=== PATIENT | female | born 1945 | race Caucasian/White ===

== ENCOUNTER 2018-04-25 14:26 | Inpatient (IN) | payer MEDICARE, OTHER ==
[2018-04-25] MEDS ORDERED: NS 0.9% 1000 ML* 1,000 ML IV ONE (14:45)
[2018-04-25 15:10] LABS: ABS Basophils 0.1 10^3/ul (0-0.2); ABS Eosinophils 0.2 10^3/ul (0-0.6); ABS Lymphocytes 2.3 10^3/ul (1.0-4.8); ABS Monocytes 0.5 10^3/ul (0-0.8); ABS Neutrophils 3.4 10^3/ul (1.5-7.7); ABS Nucleated RBC 0 10^3/ul; Eosinophil % 3.7 % (0-6); Hematocrit 40 % (35-47); Hemoglobin 13.4 g/dl (12.0-16.0); Lymphocyte % 35.4 % (25-47); Mean Corpuscular HGB Conc 34 g/dl (31-36); Mean Corpuscular Hemoglobin 31 pg (27-31); Mean Corpuscular Volume 91 fL (80-97); Mean Platelet Volume 8.3 um3 (7.4-10.4); Nucleated Red Blood Cells % 0.1; Platelet Count 238 10^3/ul (150-450); Red Blood Count 4.35 10^6/ul (4.00-5.40); Red Cell Distribution Width 13 % (10.5-15); White Blood Count 6.5 10^3/ul (3.5-10.8)
--- NOTE | 2018-04-25 15:11 | ED ---
Neurological HPI - HPI Summary HPI Summary: This patient is a 72 year old F presenting to [facility] accompanied by friend with a chief complaint of FND since 1400. Pt endorses that her left arm wouldnt lift , aphasia, drooling, all left sided deficiencies; the episode lasted a very short amount of time: 1 minute. Pt tried to call friend but could not speak. Pts bad river [place] language is Japanese, speaks Scottish tolerably well but with some limitations. Denies PMHx tremor but endorses a bilateral UE tremor today. Denies fall/ head injury. Denies vision change. Pt takes 2 ibuprofens in evenings. - History of Current Complaint Chief Complaint: EDNeurologicalDeficit Stated Complaint: POSS STROKE Time Seen by Provider: 04/25/18 14:45 Hx Obtained From: Patient, Other: - friend Onset/Duration: Sudden Onset, Resolved Timing: Sudden Onset Onset Severity: Severe Current Severity: None Neurological Deficit Location: Generalized - left sided Character: Motor Weakness, Impaired Speech Episode Lasting: Seconds/Minutes Syncope Context: Witnessed, Loss of Consciousness: No, At Rest Syncope Location: Partial Extremities, Facial Movements Aggravating: Nothing Alleviating: Spontanious Resolution Associated Signs and Symptoms: Positive: Unsteady Gait, Weakness, Impaired Speech. Negative: Visual Changes TPA Considered: No - sx resolved - Allergy/Home Medications Allergies/Adverse Reactions: Allergies Allergy/AdvReac Type Severity Reaction Status Date / Time levofloxacin [From Levaquin] Allergy Mild stomach Verified 04/25/18 16:08 issues [employer] Allergy Unknown Uncoded 09/12/15 09:15 Reaction Details PMH/Surg Hx/FS Hx/Imm Hx Endocrine/Hematology History: Denies: Hx Anticoagulant Therapy, Hx Diabetes, Hx Thyroid Disease Cardiovascular History: Reports: Other Cardiovascular Problems/Disorders - HEART MURMUR Denies: Hx Hypertension, Hx Pacemaker/ICD, Hx Valvular Heart Disease Respiratory History: Denies: Hx Asthma, Hx Chronic Obstructive Pulmonary Disease (COPD) GI History: Reports: Hx Irritable Bowel - IN THE PAST History: Reports: Hx Kidney Stones - LAST PROCEDURE 3-4 YEARS AGO, Other Problems/Disorders - WAS TOLD TO TAKE HCTZ FROM THE UROLOGIST Denies: Hx Renal Disease Musculoskeletal History: Reports: Hx Arthritis - FINGERS Sensory History: Reports: Hx Cataracts, Hx Contacts or Glasses - GLASSES Denies: Hx Hearing Aid Opthamlomology History: Reports: Hx Cataracts, Hx Contacts or Glasses - GLASSES Neurological History: Reports: Hx Headaches - RARE Denies: Hx Dementia, Hx Seizures Psychiatric History: Denies: Hx Substance Abuse - Surgical History Surgery Procedure, Year, and Place: KIDNEY STONES BLASTED X 2. CYST REMOVED. HYSTERECTOMY-AND APPENDECTOMY Hx Anesthesia Reactions: No - Immunization History Date of Tetanus Vaccine: UNK Infectious Disease History: Denies: Hx Hepatitis, Hx Human Immunodeficiency Virus (HIV) - Family History Known Family History: Negative: Blood Disorder - Social History Occupation: Retired Alcohol Use: Daily Alcohol Amount: 1 GLASS OF WINE DAILY Substance Use Type: Reports: None Smoking Status (MU): Former Smoker Amount Used/How Often: 1 PPD X 20+ YEARS Have You Smoked in the Last Year: No Review of Systems Negative: Fever Neurological: Other - drooling, hemiparesis, aphasia Positive: Weakness, Slurred Speech All Other Systems Reviewed And Are Negative: Yes Physical Exam - Summary Physical Exam Summary: Appearance: Well appearing, no pain distress, tremor in bilateral hands Skin: warm, dry, reflects adequate perfusion Head/face: normal Eyes: EOMI, DANIEL ENT: normal Neck: supple, non-tender Respiratory: CTA, breath sounds present Cardiovascular: RRR, pulses symmetrical Abdomen: non-tender, soft Bowel Sounds: present Musculoskeletal: tremor in bilateral hands, strength/ROM intact Neuro: normal, sensory motor intact, A&Ox3, NIH score 0 Triage Information Reviewed: Yes Vital Signs Reviewed: Yes Diagnostics - Laboratory Result Diagrams: 04/25/18 14:50 04/25/18 14:50 Lab Statement: Any lab studies that have been ordered have been reviewed, and results considered in the medical decision making process. - Radiology CXR Xray Interpretation: No Acute Changes Radiology Interpretation Completed By: Radiologist - no radiographic evidence for acute cardiopulmonary abnormality on this portable XR. Dr. Almeida has reviewed this report. - CT Brain CT Interpretation: No Acute Changes CT Interpretation Completed By: Radiologist - Normal CT of the brain. No evidence of acute intracranial hemorrhage. Dr. Almeida has reviewed this report - EKG 1502 Cardiac Rate: NL - 63 EKG Rhythm: Sinus Rhythm ST Segment: Normal EKG Interpretation: nl axis NIH Scale - NIH Scale Level of Consciousness: Alert/Keenly Responsive Ask Patient the Month and His/Her Age: Both Correct Ask Pt to Open/Close Eyes and Merchandise Deliverer/Release Non-Paretic Hand: Both Correctly Best Gaze (Only Horizontal Eye Movement): Normal Visual Field Testing: No Visual Loss Facial Paresis-Pt to Smile & Close Eyes or Grimace Symmetry: Normal/Symmetrical Motor Function - Right Arm: No Drift-Holds 10 Seconds Motor Function - Left Arm: No Drift-Holds 10 Seconds Motor Function - Right Leg: No Drift-Holds 10 Seconds Motor Function - Left Leg: No Drift-Holds 10 Seconds Limb Ataxia-Must be out of Proportion to Weakness Present: Absent Sensory (Use Pinprick to Test Arms/Legs/Trunk/Face): Normal Best Language (Describe Picture, Name Items): No Aphasia Dysarthria (Read Several Words): Normal Extinction and Inattention: No Abnormality Total Score: 0 Re-Evaluation - Re-Evaluation First Eval Change: Unchanged - Patient remains an NIH stroke score of 0 Course/Dx - Course Course Of Treatment: Patient with abrupt onset of left-sided upper and lower extremity weakness/ataxia as well as difficulty with speech. Her symptoms have spontaneously resolved. At CT has been negative. She shows no atrial fibrillation. She has no significant independent risk factors including hypertension. Today her blood pressure is elevated likely as a result of the neurologic syndrome. Hospitalist contacted for admission after patient started on aspirin. Neurology was contacted and will consult. - Differential Dx Differential Diagnoses Neuro: Positive: Other - CVA/TIA, intracranial hemorrhage , metabolic abnormality, heat related illness, anxiety - Diagnoses Provider Diagnoses: TIA (transient ischemic attack), Uncontrolled hypertension - Physician Notifications Discussed Care Of Patient With: Zara Tolliver - admit to Dr. Millicent Pedraza hospitalist Time Discussed With Above Provider: 15:33 Instructed by Provider To: Other Discharge - Sign-Out/Discharge Documenting (check all that apply): Patient Departure - admit - Discharge Plan Condition: Fair Disposition: ADMITTED TO [facility] - Billing Disposition and Condition Condition: FAIR Disposition: Admitted to [facility] Consult Consult: [id number] Dr. Pedraza accepts admission to [facility].
[2018-04-25 15:21] LABS: INR 0.85 (0.77-1.02)
--- NOTE | 2018-04-25 15:24 | RAD ---
INDICATION: Weakness and patient unable to speak COMPARISON: None. TECHNIQUE: Contiguous axial sections of the brain were obtained from the skull base to the vertex without contrast. FINDINGS: The ventricles, cisterns and sulci are within normal limits. The wells-white matter differentiation is adequately maintained and there is no sulcal effacement. No significant focal abnormality or mass effect is present. There is no evidence for intracranial hemorrhage. No significant focal osseous abnormality is present. The visualized portion of the paranasal sinuses appear clear. The mastoid air cells are well aerated bilaterally. IMPRESSION: Normal CT of the brain. No evidence of acute intracranial hemorrhage. Findings were communicated to Dr. Almeida over the telephone at 1519 hours.
--- NOTE | 2018-04-25 15:25 | RAD ---
INDICATION: Acute neurologic changes COMPARISON: Most recent comparison dated July 14, 2012 TECHNIQUE: Single AP portable view of the chest was obtained. FINDINGS: Image quality is compromised due to the relative inferiority of a portable chest x-ray. The heart and mediastinum exhibit normal size and contour. There is coarse calcification overlying the arch of the aorta. The lungs are grossly clear. There is no evidence of a large pleural effusion. Visualized bones are normal for the patient's age. IMPRESSION: No radiographic evidence for acute cardiopulmonary abnormality on this portable chest x-ray.
[2018-04-25 15:28] LABS: EGFR Non-African American 77.1 (>60)
[2018-04-25] MEDS ORDERED: Aspirin 81 mg CHEW TAB* 81 MG TAB.CHEW PO ONE (15:32)
[2018-04-25] MEDS ORDERED: Potassium Chlor TAB* 20 MEQ TAB.ER PO ONE (16:09)
[2018-04-25 16:16] LABS: Urine Appearance Clear; Urine Blood Negative (Negative); Urine Color Straw; Urine Ketones Negative (Negative); Urine Protein Negative (Negative); Urine Specific Gravity 1.003 (1.010-1.030); Urine Urobilinogen Negative (Negative)
[2018-04-25] MEDS ORDERED: Atorvastatin* 40 MG TAB PO SCH (17:00)
[2018-04-25] MEDS: Acetaminophen TAB* 325 MG PO PRN ×2 (17:45→23:20)
--- NOTE | 2018-04-25 18:23 | HP ---
CC: Dr. Long * [facility] MEDICINE HISTORY AND PHYSICAL: DATE OF ADMISSION: 04/25/18 PRIMARY CARE PHYSICIAN: Dr. Long. ATTENDING PHYSICIAN: Dr. Nolberto Ross * (dictation provided by Radha Hanson NP ). CHIEF COMPLAINT: Left arm weakness and aphasia x1 to 2 minutes. HISTORY OF PRESENT ILLNESS: Ms. Haley is a 72-year-old female with no significant past medical history, who presented to the hospital today after having a 1- to 2- minute episode where she had numbness followed by weakness at her left arm then with aphasia and drooling. Ms. Haley states that she has been in her normal state of health recently. She has had no complaints. She played Ping Pong with her friend and then went in to take care of her dog. While inside, she felt numbness in her left hand and then this progressed to left arm weakness and paralysis. She went outside and saw her friend and wanted to ask for help, but was unable to speak. She was noted to be drooling. Neither she nor her friend noticed that there was a facial droop and it seemed that she was drooling from the center of her mouth. The patient states that these symptoms lasted about 1 to 2 minutes. She initially tells me she has no symptoms now, but then she states that she felt some tingling in both of her hands. She has no known past medical history. She denies any history of hypertension. No known history of high cholesterol. She does not have a history of diabetes per knowledge. In the emergency room, Ms. Haley had a CT brain, which showed no acute abnormalities. She had chest x-ray, which also showed no acute abnormalities. She had an EKG, which showed a sinus rhythm and no evidence of ischemia. She had labs, which were essentially unremarkable, but did show low potassium of 3.3 and a glucose of 128. Her lipids were drawn this afternoon and showed triglycerides 473, cholesterol 291. LDL is unable to be calculated due to the high triglycerides, but again I do not believe this is a fasting sample. PAST SURGICAL HISTORY: 1. History of hysterectomy. 2. Appendectomy. 3. Multiple back surgeries for "disk" problems. 4. History of a right knee surgery. 5. History of lithotripsy for kidney stones. 6. History of right knee pain with steroid injections per Dr. Homero. 7. History of cataract surgery. MEDICATIONS: 1. Ascorbic acid 500 mg p.o. q.a.m. 2. Calcium carbonate 600 mg p.o. b.i.d. 3. Centrum Silver 1 tab p.o. daily. 4. Cetirizine 10 mg p.o. daily. 5. Glucosamine 500 mg p.o. q.a.m. 6. Ibuprofen 200 mg p.o. b.i.d. 7. Lactobacillus 1 cap p.o. daily. 8. Fish oil 1000 mg p.o. daily. ALLERGIES: To LEVOFLOXACIN. FAMILY HISTORY: The patient reports that her mother related to surgery complications after colostomy reversal and dad related to heart attack. SOCIAL HISTORY: The patient was smoking in . She drinks 1 glass of wine per night. No reported drug use. She states that her friend, Iris, would be the healthcare proxy. PHYSICAL EXAMINATION GENERAL: Ms. Haley is lying in the bed with her friend, Iris, at the bedside. LUNGS: Clear to auscultation bilaterally with no accessory muscle use and good aeration. HEART: S1 and S2. No murmur, rub or gallop and regular. ABDOMEN: Soft, nontender with bowel sounds positive x4. EXTREMITIES: No cyanosis and no edema. NEURO: She is alert. She is oriented x3. She moves all extremities equally. There is no facial asymmetry or focal weakness. Extraocular movements are intact. There is no facial asymmetry. Tongue is midline. Cranial nerves are intact II through X. She has no ataxia with [id number] or euilbr-[id number]-yijx. SKIN: Intact. DIAGNOSTIC STUDIES/LAB DATA: Sodium 136, potassium 3.3, chloride 98, serum bicarbonate 28, BUN 10, creatinine 0.75, glucose 128, lactic acid 1.9. Troponin 0.00. WBC 6.5, hemoglobin 13.4, hematocrit 40, and platelet count 238. INR 0.85. CT brain shows the following: "Normal CT of the brain. No evidence for acute intracranial hemorrhage." The chest x-ray shows the following: "No radiographic evidence for acute cardiopulmonary abnormalities in the portable chest x-ray." EKG shows sinus rhythm with no evidence of ischemia. ASSESSMENT AND PLAN: Ms. Haley is a 72-year-old female with no known past medical history, who presented to the hospital today after a 1- to 2-minute episode in which she had left arm paralysis and drooling with aphasia. She is symptom free at this time other than reporting bilateral hand tingling. Our plans are for inpatient admission, as I expect her length of stay to be greater than 2 days for the followin. Transient ischemic attack: The patient's symptoms are consistent with a transient ischemic attack. Her workup will include telemetry monitoring and transthoracic echocardiogram with bubble study. She will have a repeat lipid profile in the a.m. We will check hemoglobin A1c now. She has had aspirin 81 and we will continue with that daily. Plan to start atorvastatin based on the preliminary lipid profile today. Her blood pressure is elevated in the ED systolically up to 170, but I think this is in the setting of pain related to the blood pressure cuff and anxiety. We will monitor closely as she moves upstairs and add any blood pressure medications as needed though we would be permissive about some mild hypertension in the acute setting of acute transient ischemic attack. The patient will have an MRI brain likely on Friday and Dr. Tolliver from Neurology has been consulted. 2. Hypertension. Again as per above. 3. Code status is full code. 4. DVT prophylaxis with SCDs. TIME SPENT: Approximately, 60 minutes were spent in the admission of this patient, more than half time spent with the patient at the bedside reviewing the events leading up to this hospitalization, performing the physical examination, and reviewing my plan of care. RADHA HANSON NP [id number]/CPS #: [id number] LESTER
--- NOTE | 2018-04-25 22:23 | RAD ---
HISTORY: TIA, Left sided weakness, aphasia COMPARISONS: Same day CT of the brain TECHNIQUE: The following sequences were obtained of the head: Sagittal T1-weighted images, axial T2-weighted images, axial FLAIR images, axial susceptibility weighted images, axial T1-weighted images. Additionally, axial diffusion-weighted images were obtained with calculated apparent diffusion coefficients.. FINDINGS: HEMORRHAGE/INFARCT: There is no hemorrhage or acute infarct. MASSES/SHIFT: There is no mass or shift. EXTRA-AXIAL SPACES/MENINGES: There are no extra-axial fluid collections. SULCI AND VENTRICLES: The sulci and ventricles are normal in size and position for the patient's stated age. CEREBRUM: There is patchy periventricular and subcortical T2 bright hyperintensity most commonly secondary to chronic microvascular disease. The wells-white matter differentiation is adequately preserved otherwise. BRAINSTEM: There are no focal parenchymal abnormalities. CEREBELLUM: There are no focal parenchymal abnormalities. The cerebellar tonsils are normal in size and position. SELLA: The sella is normal. PINEAL: The pineal region is clear. CP ANGLE/TEMPORAL BONES: The labyrinthine structures are grossly normal. VESSELS: Normal flow-voids are noted within the visualized vertebral vasculature. DIFFUSION ABNORMALITIES: There are no diffusion abnormalities. PARANASAL SINUSES/MASTOIDS: The paranasal sinuses are clear. ORBITS: The orbits are unremarkable. BONES AND SOFT TISSUE: No bone or soft tissue abnormalities are noted. IMPRESSION: MR FINDINGS ARE MOST CONSISTENT WITH CHRONIC MICROVASCULAR DISEASE. THERE IS NOW EVIDENCE OF AN ACUTE FOCAL OR TERRITORIAL INFARCTION.
[2018-04-26 05:44] LABS: EGFR Non-African American 91.2 (>60)
[2018-04-26] MEDS: Acetaminophen TAB* 325 MG PO PRN (08:19)
[2018-04-26] MEDS ORDERED: Aspirin 81 mg CHEW TAB* 81 MG TAB.CHEW PO SCH (09:00)
[2018-04-26] MEDS ORDERED: Clopidogrel TAB* 75 MG PO SCH (10:00)
--- NOTE | 2018-04-26 12:26 | ECHO ---
Patient: EJ REED [facility] Rec#: [id number] : 1945 Date: 04/26/2018 Age: 72y Height: 155 cm / 61.0 in Weight: 56 kg / 123.4 lbs Sex: F BSA: 1.54 Room#: 435 Admit Date#: 04/25/2018 Type: Inpatient Referring: Radha Hanson NP Reading: Jacinto Henry MD Channel Opener: Sofya Price RDCS,RDMS CC: Ariane Long MD Transthoracic Echocardiogram Indication: TIA BP: 136/75 HR: 54 Rhythm: NSR Findings History: No significant history Technical Comments: The study quality is good. Left Ventricle: The left ventricular chamber size is normal. Global left ventricular wall motion and contractility are within normal limits. There is normal left ventricular systolic function. The estimated ejection fraction is 55-60%. Abnormal left ventricular diastolic filling is observed, consistent with impaired relaxation. Left Atrium: The left atrium is mild to moderately dilated. Right Ventricle: The right ventricular cavity size is normal. The right ventricular global systolic function is normal. Right Atrium: The right atrial cavity size is normal. The bubble study is negative. A patent foramen ovale is not demonstrated with color Doppler and agitated contrast. Aortic Valve: The aortic valve is trileaflet. The aortic valve leaflets are mildly thickened. There is no evidence of aortic regurgitation. There is borderline aortic stenosis present. The mean gradient of the aortic valve is 7 mmHg. Mitral Valve: The mitral valve leaflets appear normal. There is trace to mild mitral regurgitation. Tricuspid Valve: The tricuspid valve leaflets are normal. There is trace tricuspid regurgitation. Unable to estimate the right ventricular systolic pressure. Pulmonic Valve: The pulmonic valve structure is not well visualized. There is no evidence of pulmonic valve thickening. There is no evidence of pulmonic regurgitation. There is no pulmonic stenosis. Pericardium: There is no significant pericardial effusion. Aorta: The aortic root appears normal. There is no dilatation of the aortic arch. Pulmonary Artery: The main pulmonary artery is not well visualized. Venous: The inferior vena cava appears normal in size. There is a greater than 50% respiratory change in the inferior vena cava dimension. Contrast: Intravenous agitated saline contrast was used to assess intracardiac shunting. Image 56 Conclusions There is normal left ventricular systolic function. The estimated ejection fraction is 55-60%. Global left ventricular wall motion and contractility are within normal limits. The left ventricular chamber size is normal. Abnormal left ventricular diastolic filling is observed, consistent with impaired relaxation. The left atrium is mild to moderately dilated. Functionally benign heart valves. A patent foramen ovale is not demonstrated with color Doppler nor agitated contrast. There is no prior echocardiogram available to compare with at this time. Measurements Name Value Normal Range RVIDd (AP) 2D 2.7 cm (0.9 - 2.6) RVDdMajor (2D) 1.9 cm (2.2 - 4.4) RAd ISD 4CH 4.8 cm (3.4 - 4.9) RA (A4C)W 2.6 cm (2.9 - 4.6) IVSd (2D) 1 cm (0.6 - 1) LVPWd (2D) 1.1 cm (0.6 - 1) LVIDd (2D) 4.5 cm (3.6 - 5.4) LVIDs (2D) 3.5 cm - LV FS (2D) 23 % (25 - 45) Aortic Annulus 1.9 cm (1.4 - 2.6) Ao root diameter (2D) 3.3 cm (2.1 - 3.5) Ascending Ao 3.3 cm (2.1 - 3.4) Aortic arch 3.1 cm (1.8 - 3.4) LA dimension (AP) 2D 3.3 cm (2.3 - 3.8) LAd ISD 4CH 6 cm (2.9 - 5.3) LA ISD 4CH W 4 cm (2.5 - 4.5) Name Value Normal Range LA ESV BP (A/L) index 29 ml/m2 - Name Value Normal Range MV E-wave Vmax 0.9 m/sec - MV deceleration time 190 msec - MV A-wave Vmax 0.7 m/sec - MV E:A ratio 1.3 ratio - P. vein S-wave Vmax 0.6 m/sec - P. vein D-wave Vmax 0.5 m/sec - P. vein S:D Vmax ratio 1.1 ratio - P. vein A-wave duration 129 msec - LV septal e' Vmax 0.07 m/sec - LV lateral e' Vmax 0.09 m/sec - LV E:e' septal ratio 13 ratio - LV E:e' lateral ratio 10 ratio - Name Value Normal Range AV Vmax 1.8 m/sec - AV VTI 40 cm - AV peak gradient 13 mmHg - AV mean gradient 7 mmHg - LVOT diameter 1.9 cm - LVOT Vmax 1 m/sec - LVOT VTI 24 cm - LVOT peak gradient 4 mmHg - LVOT mean gradient 2 mmHg - LULY (continuity Vmax) 1.6 cm2 - LULY (continuity VTI) 1.7 cm2 - Name Value Normal Range RAP 3 mmHg - IVC diameter 1.4 cm - Name Value Normal Range PV Vmax 1 m/sec - PV peak gradient 4 mmHg -
--- NOTE | 2018-04-26 12:52 | CONS ---
CC: Dr. Ariane Long * CONSULTATION REPORT: DATE OF CONSULT: 04/26/18 CURRENT LOCATION: Room 435, bed 1. PRIMARY CARE PHYSICIAN: Dr. Ariane Long. REASON FOR CONSULT: Speech difficulties and left arm weakness. HISTORY OF PRESENT ILLNESS: Ms. Haley is a jacy 72-year-old female with a history of multiple surgeries in the past, but no significant medical issues, who was in her usual state of health playing ping-pong on the day of admission. She went out to get her dog and noticed that her left arm felt numb, at the same time she tried to speak and had some difficulty speaking. Her partner states that her mouth was hanging open, but there was no focal facial droop. The patient states that the symptoms lasted about a minute or two and then resolved completely and she has had no further episodes. She has never had any episodes before similar to this. She is right-handed. She denies any other weakness including no right-sided weakness. She does note a longstanding history of some tingling in her feet, but has a history of back surgery and this has been ongoing for years. She notes no falls. No recent head trauma. She notes no vision changes or headaches. She has no prior history of migraine headaches. She notes no hearing changes. No difficulty walking when this happened and otherwise has felt very well. She does do regular cardio. She does low impact boxing and is very active and takes care of herself at home. She takes some vitamins, but no prescription medications. Since she has been admitted to the hospital, she has had no further event. She feels fine, she has been ambulating up into the bathroom. No dizziness. No further numbness or tingling or weakness. She notes no palpitations or chest pain. She did have a low potassium on admission of 3.3, but her appetite has been good. She has been eating and feels back to her baseline. Studies done include a brain CT, reviewed, no evidence of acute intracranial abnormality. MRI of the brain, reviewed, there are some chronic changes, but no evidence of acute stroke. Carotid ultrasound pending. Echocardiogram pending. Chest x-ray, no acute cardiopulmonary process. PAST MEDICAL HISTORY: As noted above. PAST SURGICAL HISTORY: Includes an appendectomy. She has had several back surgeries, the last one around 1999 in the lumbar spine for disk protrusions. She has had a total abdominal hysterectomy. She has had surgery on her right knee, lithotripsy for kidney stones, she gets occasional steroid injections in her right knee and she has had cataract surgery. MEDICATIONS AT HOME: Include: 1. Ascorbic acid 500 mg q.a.m. 2. Calcium carbonate 600 mg b.i.d. 3. Centrum Silver 1 tab daily. 4. Cetirizine 10 mg daily. 5. Glucosamine 500 mg in the morning. 6. Ibuprofen 200 mg p.o. b.i.d. 7. Lactobacillus 1 cap p.o. daily. 8. Fish oil 1000 mg p.o. daily. ALLERGIES: Her allergies to LEVOFLOXACIN. FAMILY HISTORY: There is no prior history of bleeding disorder. She had a father, who may have had a stroke or heart attack in his 70s. Her mother after complications from surgery. SOCIAL HISTORY: She was a prior smoker, but she quit years ago. She drinks approximately 1 glass of wine per night. She denies any illicit substance or drug use. She has a partner, who is her healthcare proxy. REVIEW OF SYSTEMS: Review of systems in 14-organ systems as noted above, otherwise negative. PHYSICAL EXAMINATION: Blood pressure 132/68 to 142/75 to 136/75, on admission to the ER, her blood pressure was 179/87; temp in the 97 to 98 range; pulse rate 54 to 61; respiratory rate of 18 to 20; pulse ox 96% to 98%. In general, she is a well- nourished, well-developed female, in no acute distress. She is lying on her hospital bed, her partner and daughter are at the bedside. She is pleasant, well dressed, well groomed. HEENT: She is normocephalic/atraumatic. Sclerae are anicteric. Mucous membranes are moist. Oropharynx is clear. Nares are patent. Neck is supple. No thyromegaly. No carotid bruits. No meningismus. Chest: Clear to auscultation bilaterally. Cardiovascular: Regular rate and rhythm with a 1/6 systolic ejection murmur at the left upper sternal border. Abdomen is nontender, nondistended. Extremities: No clubbing , cyanosis, or edema. Her skin is warm and dry without lesions. She has good peripheral pulses. On neurologic exam, she is awake, alert, oriented x3. Her speech is fluent. There is no dysarthria. Repetition is intact. Recall of recent and remote events is intact. Vocabulary is intact. Her mood is euthymic. Affect, mood congruent. Cranial nerves II through XII, pupils are equal, round, and reactive to light. Extraocular muscles are intact. No diplopia noted. No nystagmus. Her face sensation is intact bilaterally. Face is symmetric, no focal weakness. Hearing is intact bilaterally with a finger rub. Palate raises symmetrically. Tongue is midline. Sternocleido-mastoid, trapezius are 5/5 throughout. Motor exam, she spontaneously moves all extremities antigravity with very good resistance 5/5 throughout. Tone is normal. There is no drift in the upper or lower extremities. DTRs are 1+ and symmetric in the upper extremities, biceps, brachioradialis, triceps, 1+ at the patella and ankles. She withdraws on Babinski. [id number], rapid alternating movements are intact without tremor. She has loss of light touch, pinprick in the feet bilaterally, but otherwise her sensation is completely intact throughout. Gait: She is able to stand without difficulty. Her Romberg is minimal sway. She has a normal gait. DIAGNOSTIC STUDIES/LAB DATA: Includes CBC with diff significant only for a monocyte percent of 7.7, which is elevated. INR of 0.85, PTT of 28.5. Sodium of 140; initial potassium of 3.3, this morning 3.9; her initial glucose of 128, this morning 96; her complete metabolic profile is otherwise intact. Hemoglobin A1c is 5.7. Her triglycerides this morning of 172, cholesterol of 231, LDL of 152, HDL of 45. Imaging: As noted above. ASSESSMENT AND PLAN: Ms. Haley is a 72-year-old female with a history of prior smoking in the 1999s, since quit; no history of hypertension, diabetes; she has some hypercholesterolemia, previously on no medications, admitted to the hospital with a 1- to 2-minute history of left arm numbness and weakness and some speech difficulty. She is a right-handed female. She has never had any prior episodes. Has no history of bleeding disorders. Has no history of migraine headaches or other neurologic problems. She was not on an aspirin prior to admission. Since admission, she has had no further episodes. Her MRI of the brain shows no acute strokes. CT shows no acute issues. We are awaiting carotid ultrasound and echocardiogram. 1. I would continue her aspirin 81 mg. I would add Plavix 75 mg p.o. q. day for the first 30 days and she can go back to aspirin 81 mg a day only. 2. She has been started on a statin, goal LDL will be less than 100 given the likelihood of a transient ischemic attack. I would titrate this statin up buttermaker to achieve desired results. 3. Follow up carotid ultrasound and echocardiogram. 4. I encouraged her to exercise, although I said for the next 30 days, she should not participate in strenuous activity or heavy lifting. She can get some cardiopulmonary workout and walking. 5. I told her to come to the ER immediately with any further episodes. 6. If her carotid ultrasound and her echocardiogram are both normal, I think she can go home today. I would request that she have a followup with me in about a month and she knows to return to the ER with any new issues. I will continue to follow her while she is in the hospital. Thank you for the opportunity to participate in her care. [id number]/[facility] #: [id number] LESTER
[2018-04-26 15:52] VITALS: BP 144/60
[2018-04-26] MEDS ORDERED: Atorvastatin* 40 MG TAB ONE (17:20)
--- NOTE | 2018-04-28 11:00 | DS ---
CC: Dr. Ariane Long; Dr. Nolberto Ross; Dr. Kavin Little DISCHARGE SUMMARY: DATE OF ADMISSION: 04/25/18 DATE OF DISCHARGE: 04/27/18 PRIMARY CARE PROVIDER: Dr. Ariane Long. CONSULTING NEUROLOGIST: Dr. Kavin Little. MY ATTENDING WHILE IN THE HOSPITAL: Dr. Nolberto Ross. PRIMARY DISCHARGE DIAGNOSES: 1. Transient ischemic attack. 2. Hyperlipidemia. SECONDARY DISCHARGE DIAGNOSES: 1. Spinal pathology. 2. Kidney stones. 3. Osteoarthritis. STUDIES DONE WHILE IN THE HOSPITAL: Brain CT from 04/25/[address] of the brain. Chest x-ray from 04/25/18 read as no radiographic evidence for acute cardiopulmonary abnormality in t his portable chest x-ray. Electrocardiogram from 04/25/18 shows normal sinus rhythm, normal axis. No blocks or hypertrophy. N o ST segment abnormalities, rate of 63, QTc of 468. No abnormalities. Transthoracic echocardiogram on 04/25/18 read as there is no left ventricular systolic function. Est imated ejection fraction 55% to 60%. Global left ventricular wall motion and contractility, within n ormal limits. Left ventricular chamber size is normal and normal left ventricular diastolic filling was observed consistent with impaired relaxation. Left atrium is mild to moderately dilated. Functio farida benign heart valves. PFO is not demonstrated by color Doppler nor agitated contrast. There is no prior echocardiogram available to compare with at this time. Brain MRI from 04/25/18 read as MRI findings consistent with chronic microvascular disease. There is no evidence of an acute focal or territorial infarction. MEDICATIONS AT DISCHARGE: 1. Calcium carbonate 600 mg p.o. b.i.d. 2. Glucosamine sulfate 500 mg p.o. q.a.m. 3. Ascorbic acid 500 mg p.o. q.a.m. 4. Ibuprofen 200 mg p.o. b.i.d. as needed. 5. [place]-3 fatty acids 1000 mg p.o. daily. 6. Lactobacillus acidophilus 1 cap daily. 7. Cetirizine 10 mg daily. 8. Centrum Silver 1 tab p.o. daily. 9. Tylenol 650 mg p.o. q.6 hours as needed. 10. Aspirin 81 mg p.o. daily. 11. Lipitor 40 mg p.o. daily. 12. Clopidogrel 75 mg p.o. daily. New medications at discharge: 1. Aspirin. 2. Lipitor. 3. Clopidogrel. HOSPITAL COURSE: This is a brief summary of the patient's presentation. For more details, please se e the history and physical from Radha Hanson NP, from 04/25/18. In brief, the patient is a 72-year-old female with the past medical history significant for the above, who presented after approximately 1 to 2 episodes of numbness in her left arm with aphasia and drooling. The patient has no recent compl aints. She was very active. She started initially with left hand weakness, progressed to the left a rm weakness and paralysis and was unable to speak or ask for help. Her friend knows she was drooling . She did not have laterality to drooling. She was drooling at the center of her mouth. The sympto ms lasted for 1 to 2 minutes. The patient had no previous predisposing factors that she knew of. The patient came into the emergency department. The patient had eaten earlier in the day and her trigly cerides were 473, cholesterol 281. The patient was admitted to the hospital for a transient ischemic attack, had studies done as above. The patient had a color Doppler ultrasound performed, but was un able to be read due to being performed on a machine designed for an echocardiogram. The patient had a repeat cholesterol panel, which showed LDL cholesterol of 152, HDL cholesterol of 45, triglycerides of 172. The patient had no other significant electrolyte abnormalities except for hemoglobin A1c of 5.7, but she is at the very low end of the prediabetic range. The patient had no recurrent symptoms . The patient's vital signs initially hypertensive and then became normotensive without intervention . The patient was seen in consultation by Dr. Kavin Little of Neurology, who recommended aspirin and Plavix for 30 days and then aspirin monotherapy as well as statin with LDL goal of 100. Recommen ded against strenuous exercise. The patient was stable and amenable for discharge on 04/27/18. PHYSICAL EXAMINATION ON DAY OF DISCHARGE: General: The patient is a 72-year-old female, who appears stated age and is sitting comfortably in bed, in no acute distress. HEENT: Head, normocephalic, at raumatic. Sclerae anicteric. No conjunctival injection. Nasal mucosa moist. Oral mucosa moist. N o pharyngeal erythema, discharge, or exudate. Vital Signs: Temperature 98.0, pulse rate 60, respira tory rate 18, oxygen saturation 97% on room air, blood pressure 144/60. Neck: Supple, nontender. No lymphadenopathy. No carotid bruit auscultated. No JVD. Cardiac: Regular rate and rhythm. No cli cks, murmurs, gallops, or rubs. Pulses are 2+ bilaterally in dorsalis pedis, posterior tibialis, and radial areas. Respiratory: Clear to auscultation bilaterally. No wheezes, rales, or rhonchi. Good a ir exchange bilaterally. Abdomen: Soft, nontender, nondistended. Bowel sounds present. Normoactiv e in all 4 quadrants. No hepatosplenomegaly. No abdominal bruits auscultated. No hepatojugular ref lux. Genitourinary: No suprapubic or CVA tenderness. Skin: Clean, dry, intact. No rash. Neuro: Cranial nerves II through XII intact. No focal deficits. Cerebellar function performed without diff iculty. No word finding difficulties. Normal gait. Reflexes 2+ in bilateral biceps, patellar, and A chilles areas. Babinski is downgoing bilaterally. Psychiatric: Pleasant and cooperative. LABORATORY DATA: On the day of discharge, sodium 140, potassium 3.9, chloride 107, carbon dioxide 28 , anion gap 5, BUN 10, creatinine 0.64, glucose 96, calcium 9.0. DISCHARGE PLAN: The patient will be discharged to home on aspirin and Plavix as well as Lipitor. [facility] patient will follow up in 1 week for general medical management with her primary care provider. [facility] patient at this time should be scheduled for a carotid ultrasound. This was unable to be performed while in the hospital and should be performed before the patient sees Neurology. The patient should follow up with Dr. Kavin Little from Neurology within 1 month for interpretation of her laborato ry studies including carotid ultrasound, as well as management of her secondary risk factors for stro ke. The patient should have a heart healthy diet without caffeine. The patient should have age-appr opriate followup for her borderline prediabetes as well as hyperlipidemia. The patient should return to the hospital for new symptoms of weakness, aphasia. The patient should also return for alarming symptoms such as chest pain, shortness of breath, nausea or vomiting. The patient can engage in acti vity as tolerated avoiding strenuous activity as per Neurology recommendations. TIME SPENT: Approximately 60 minutes was spent on this discharge, 30 of which was spent [id number] with the patient obtaining history and physical and discussing treatment plan. KWAME FLOYD [id number]/[facility] #: [id number]
== END 2018-04-26 16:44 | disposition home or self-care (01) | DRG 69 ==
LOC: ED 14:26 → MEDTELE 16:27
PROVIDERS: ADMIT Internal Medicine; ATTEND Internal Medicine
DX: G45.9 Transient cerebral ischemic attack, unspecified (principal); M19.049 Primary osteoarthritis, unspecified hand; K58.9 Irritable bowel syndrome, unspecified; E78.00 Pure hypercholesterolemia, unspecified; I10 Essential (primary) hypertension; R29.700 NIHSS score 0; Z87.442 Personal history of urinary calculi; Z88.1 Allergy status to other antibiotic agents; Z72.89 Other problems related to lifestyle; Z87.891 Personal history of nicotine dependence; Z90.89 Acquired absence of other organs; Z90.710 Acquired absence of both cervix and uterus; Z98.49 Cataract extraction status, unspecified eye; Z82.49 Family history of ischemic heart disease and other diseases of the circulatory system; Z82.3 Family history of stroke; Z79.82 Long term (current) use of aspirin
CPT/HCPCS: 36415; 70450; 70551; 71045; 80048; 80053; 80061; 81003; 83036; 83605; 83721; 84484; 85025; 85610; 85730; 93005; 93306; 99285; A9270-GY

== ENCOUNTER 2018-07-16 07:30 | Emergency (ER) | payer MEDICARE, OTHER ==
[2018-07-16] MEDS ORDERED: NS 0.9% 1000 ML* 1,000 ML IV ONE ×2 (07:43→10:32)
[2018-07-16] MEDS ORDERED: Diazepam TAB(*) 5 MG PO ONE (07:43)
[2018-07-16] MEDS ORDERED: Meclizine TAB* 12.5 MG PO ONE (07:43)
--- NOTE | 2018-07-16 07:45 | ED ---
Neurological HPI - HPI Summary HPI Summary: This pt is a 72 y/o female presenting to [facility] c/o dizziness since around 05:30 this morning. Pt describes dizziness as room spinning. She states she woke up at 05:00 this morning feeling well and went to take a shower. Pt notes she began to feel weak after her shower while raising her arms to dry the stall. She reports her dizziness began between 05:30 and 06:00 today. Additionally notes she has right ear pain, described as buzzing. Denies lightheadedness, numbness, AMS, fever, chest pain, SOB. Pt has hx of TIA in April 2018. During her TIA pt experienced left arm weakness. She states today's symptoms are different from her past TIA. Currently she reports feeling better. - History of Current Complaint Stated Complaint: POSS STROKE Hx Obtained From: Patient Onset/Duration: Sudden Onset, Started hours ago, Still Present Timing: Sudden Onset Onset Severity: Severe Current Severity: Moderate Neurological Deficit Location: Generalized - dizziness Pain Intensity: 0 - denies pain Pain Scale Used: 0-10 Numeric Character: Room Spinning, Weak, Dizzy Aggravating: Nothing Alleviating: Nothing Associated Signs and Symptoms: Positive: Weakness, Dizziness, Pain - Right ear pain. Negative: AMS, Numbness, Lightheadness, Fever, Chest Pain, Shortness of Breath - Additional Pertinent History Primary Care Physician: GIANA - Allergy/Home Medications Allergies/Adverse Reactions: Allergies Allergy/AdvReac Type Severity Reaction Status Date / Time levofloxacin [From Levaquin] Allergy Mild stomach Verified 04/25/18 16:08 issues [employer] Allergy Unknown Uncoded 09/12/15 09:15 Reaction Details PMH/Surg Hx/FS Hx/Imm Hx Endocrine/Hematology History: Denies: Hx Anticoagulant Therapy, Hx Diabetes, Hx Thyroid Disease Cardiovascular History: Reports: Other Cardiovascular Problems/Disorders - HEART MURMUR Denies: Hx Hypertension, Hx Pacemaker/ICD, Hx Valvular Heart Disease Respiratory History: Denies: Hx Asthma, Hx Chronic Obstructive Pulmonary Disease (COPD) GI History: Reports: Hx Irritable Bowel - IN THE PAST History: Reports: Hx Kidney Stones - LAST PROCEDURE 3-4 YEARS AGO, Other Problems/Disorders - WAS TOLD TO TAKE HCTZ FROM THE UROLOGIST Denies: Hx Renal Disease Musculoskeletal History: Reports: Hx Arthritis - FINGERS Sensory History: Reports: Hx Cataracts, Hx Contacts or Glasses - GLASSES Denies: Hx Hearing Aid Opthamlomology History: Reports: Hx Cataracts, Hx Contacts or Glasses - GLASSES Neurological History: Reports: Hx Headaches - RARE, Hx Transient Ischemic Attacks (TIA) - in April 2018 Denies: Hx Dementia, Hx Seizures Psychiatric History: Denies: Hx Panic Disorder, Hx Substance Abuse - Surgical History Surgery Procedure, Year, and Place: KIDNEY STONES BLASTED X 2. CYST REMOVED. HYSTERECTOMY AND APPENDECTOMY. BILATERAL CATARACTS. LUMBAR DISCECTOMY. RIGHT KNEE MENISCUS. ORAL SURGERIES WITH PERM IMPLANTS Hx Anesthesia Reactions: No - Immunization History Date of Tetanus Vaccine: UNK Infectious Disease History: No Infectious Disease History: Denies: Hx Hepatitis, Hx Human Immunodeficiency Virus (HIV), Traveled Outside the [place] in Last 30 Days - Family History Known Family History: Positive: Cardiac Disease - father with fatal [place] Negative: Blood Disorder - Social History Alcohol Use: Daily Alcohol Amount: 1 GLASS OF WINE DAILY Substance Use Type: Reports: None Smoking Status (MU): Former Smoker Amount Used/How Often: 1 PPD X 20+ YEARS Have You Smoked in the Last Year: No Review of Systems Negative: Fever, Chills Positive: Ear Ache - right Negative: Chest Pain Negative: Shortness Of Breath Neurological: Other - POS: dizziness. NEG: lightheadedness, AMS Positive: Weakness. Negative: Numbness All Other Systems Reviewed And Are Negative: Yes Physical Exam - Summary Physical Exam Summary: VITAL SIGNS: Reviewed. GENERAL: Patient is a well-developed and nourished female who is lying comfortable in the stretcher. Patient is not in any acute respiratory distress. HEAD AND FACE: No signs of trauma. No ecchymosis, hematomas or skull depressions. No sinus tenderness. EYES: PERRLA, EOMI x 2, No injected conjunctiva, no nystagmus. EARS: Hearing grossly intact. Ear canals and tympanic membranes are within normal limits. MOUTH: Oropharynx within normal limits. NECK: Supple, trachea is midline, no adenopathy, no JVD, no carotid bruit, no c- spine tenderness, neck with full ROM. CHEST: Symmetric, no tenderness at palpation LUNGS: Clear to auscultation bilaterally. No wheezing or crackles. CVS: Regular rate and rhythm, S1 and S2 present, no murmurs or gallops appreciated. ABDOMEN: Soft, non-tender. No signs of distention. No rebound, no guarding, and no masses palpated. Bowel sounds are normal. EXTREMITIES: FROM in all major joints, no edema, no cyanosis or clubbing. NEURO: Alert and oriented x 3. No acute neurological deficits. Speech is normal and follows commands. SKIN: Dry and warm GCS: 15 Triage Information Reviewed: Yes Vital Signs On Initial Exam: Initial Vitals Temp Pulse Resp BP Pulse Ox 97.8 F 56 16 154/74 100 07/16/18 07:33 07/16/18 07:33 07/16/18 07:33 07/16/18 07:33 07/16/18 07:33 Vital Signs Reviewed: Yes Diagnostics - Vital Signs Vital Signs Temp Pulse Resp BP Pulse Ox 07/16/18 07:33 97.8 F 56 16 154/74 100 - Laboratory Result Diagrams: 07/16/18 07:40 07/16/18 07:40 Lab Statement: Any lab studies that have been ordered have been reviewed, and results considered in the medical decision making process. - Radiology Chest XR Xray Interpretation: No Acute Changes - IMPRESSION: Hyperinflation, consistent with COPD. No active cardiopulmonary disease. Dr. Coffey has reviewed this report. Radiology Interpretation Completed By: Radiologist - CT Brain CT CT Interpretation: No Acute Changes - IMPRESSION: No acute intracranial pathology. Dr. Coffey has reviewed this report. CT Interpretation Completed By: Radiologist - EKG 08:07 Cardiac Rate: Bradycardia - at 59 bpm EKG Rhythm: Sinus Bradycardia EKG Interpretation: No ST elevations. EKG Comparison: No Significant Change - compared to prior 04/25/18. NIH Scale - NIH Scale Level of Consciousness: Alert/Keenly Responsive Ask Patient the Month and His/Her Age: Both Correct Ask Pt to Open/Close Eyes and Grants Assistant/Release Non-Paretic Hand: Both Correctly Best Gaze (Only Horizontal Eye Movement): Normal Visual Field Testing: No Visual Loss Facial Paresis-Pt to Smile & Close Eyes or Grimace Symmetry: Normal/Symmetrical Motor Function - Right Arm: No Drift-Holds 10 Seconds Motor Function - Left Arm: No Drift-Holds 10 Seconds Motor Function - Right Leg: No Drift-Holds 10 Seconds Motor Function - Left Leg: No Drift-Holds 10 Seconds Limb Ataxia-Must be out of Proportion to Weakness Present: Absent Sensory (Use Pinprick to Test Arms/Legs/Trunk/Face): Normal Best Language (Describe Picture, Name Items): No Aphasia Dysarthria (Read Several Words): Normal Extinction and Inattention: No Abnormality Total Score: 0 Re-Evaluation - Re-Evaluation First Eval Re-Evaluation Time: 11:45 Comment: I reviewed the lab results with the pt. Course/Dx - Course Assessment/Plan: This pt is a 72 y/o female presenting to [facility] c/o dizziness since around 05:30 this morning. Pt describes dizziness as room spinning. She states she woke up at 05:00 this morning feeling well and went to take a shower. Pt notes she began to feel weak after her shower while raising her arms to dry the stall. She reports her dizziness began between 05:30 and 06:00 today. Denies lightheadedness, numbness, pain, AMS, fever, chest pain, SOB. Patient reports that she has bussing in the right ear and also right ear pain since yesterday. Pt has hx of TIA in April 2018. During her TIA pt experienced left arm weakness. She states today's symptoms are different from her past TIA. Currently she reports feeling better. Blood work without any significant abnormality except for sodium 134, lactic acid is 2.2 and repeat is 1.1 after hydration. Magnesium level is 1.7 for which the patient was given magnesium by mouth. Urinalysis is negative for UTI. Head CT impression: No acute intracranial pathology. Chest X-ray impression: Hyperinflation, consistent with COPD. No active cardiopulmonary disease. In the ED course the patient was given IV fluids for rehydration, meclizine and Valium for vertigo. After these medications were given the patient's symptoms have resolved. The patient is feeling better. She reports that the dizziness has resolved. The patient is ambulating with a good steady walk and she doesn't have any ataxia or any acute neurological focal deficits. Therefore the patient will be discharged home with follow-up from primary care physician. She was instructed to return to the emergency department if she develops any weakness, slurred speech, lethargy or any other symptoms. She understands and agrees. Patient is hemodynamically stable, alert and oriented x3. - Differential Dx Differential Diagnoses Neuro: Positive: Carbon Monoxide Poisoning, Cerebrovascular Accident, Transient Ischemic Attack, Vasovagal Reaction - Diagnoses Provider Diagnoses: Vertigo Discharge - Sign-Out/Discharge Documenting (check all that apply): Patient Departure - Discharge home - Discharge Plan Condition: Stable Disposition: HOME Prescriptions: Meclizine TAB* [Antivert 12.5 TAB*] 25 mg PO TID PRN #30 tab PRN Reason: Vertigo Patient Education Materials: Vertigo (ED) Referrals: Ariane Long MD [Primary Care Provider] - Additional Instructions: FOLLOW UP WITH YOUR PRIMARY CARE PROVIDER WITHIN ONE WEEK FOR HIGH BLOOD PRESSURE NOTED TODAY. RETURN TO THE ED FOR ANY NEW OR WORSENING SYMPTOMS. - Billing Disposition and Condition Condition: STABLE Disposition: Home - Attestation Statements Document Initiated by Marvinibe: Yes Documenting Scribe: Hoda Knutson Provider For Whom Anthony is Documenting (Include Credential): Chris Coffey MD Scribe Attestation: Hoda Mcdonnell, scribed for Chris Coffey MD on 07/19/18 at 1200. Scribe Documentation Reviewed: Yes Provider Attestation: The documentation as recorded by the Hoda aleman accurately reflects the service I personally performed and the decisions made by Chris briscoe MD
--- OUTSIDE RECORDS SUMMARY | 2018-07-16 07:59 | XMS REPORT ---
:1945 External Reference #:[id number] Author Organization [facility] Address [address] [place] [address] Phone [phone] Care Team Providers Name Role Phone Ariane Long MD Primary Care Physician Unavailable Payers Type Date Identification Numbers Payment Provider Subscriber Medicare Primary Effective: Policy Number: Medicare Sasha Haley 2010 [id number] PayID: [id number] [address] [place] [address] [facility] Part B Policy Number: [id number] [employer] Sasha Haley Group Number: [id number] [address] PayID: [id number] [place] [address] Problems Date Description Provider Status Onset: 04/17/[address] loss [address] M.D. Active Onset: 04/17/2015 Dysfunction of eustachian tube [address] M.D. Active Onset: 05/16/2017 Localized, primary osteoarthritis Danita Valentin M.D. Active Onset: 04/26/2018 Hyperlipidemia KWAME Ye Active Onset: 04/25/2018 Essential hypertension Radha Hanson N.P. Active Onset: 04/25/2018 Transient cerebral ischemia Radha Hanson N.P. Active Family History Date Family Member(s) Problem(s) Comments General Heart Disease General Cancer General Rheumatoid Arthritis Social History Type Date Description Comments Lives With spouse Occupation Retired Hand Dominance Right-handed Cigarette Use Quit 10 Years Ago Cigars Never Smoked Cigars Pipe Never Smoked A Pipe Smokeless Tobacco Never Used Smokeless Tobacco ETOH Use Currently consumes alcohol 1 drink/day Smoking Patient is a former smoker Exercise Type/Frequency Exercises regularly Allergies, Adverse Reactions, Alerts Date Description Reaction Status Severity Comments 04/17/2015 Antibiotic Does Not Know The Name active 03/08/2016 Levofloxacin active Medications Medication Date Status Form Strength Qnty SIG Indications Ordering Provider Multivitamin / Active once Unknown 0000 daily Glucosamine / Active Tablets 500mg once Unknown Sulfate 0000 daily Probiotic / Active Once Unknown 0000 daily Zyrtec Allergy 00/ Active Tablets Once Unknown 0000 daily Fish Oil / Active Capsules 1 po Unknown 0000 once daily Vitamin C / Active 500mg Once Unknown 0000 daily Aspir-Low / Active Tablets DR 81mg 1 by Unknown 0000 mouth every day Mobic 03/08/ Hx Tablets 15mg 60tabs 1 tablet M17.12 Danita 2015 - by mouth Homero 05/15/ aleks Toussaint 2016 No Active Unknown Medications 2014 - 2014 Flonase Allergy Hx Suspension 50mcg/Act 1units 2 puffs 381.81 Williams Relief 2015 - both Ruparelia, 05/15/ becky Toussaint 2016 once a day Calcium / Hx Unknown 0000 - 2017 Ibuprofen / Hx Capsules 200mg as Unknown 0000 - needed 2017 Medications Administered in Office Medication Date Status Form Strength Qnty SIG Indications Ordering Provider Depomedrol Administered Injection Danita 40MG 018 Norbert Valentin Depomedrol Administered Injection Danita 40MG 017 Norbert Valentin Depomedrol Administered Injection Danita 40MG 016 Norbert Valentin Vital Signs Date Vital Result Comment 06/19/2018 Height 64 inches 5'4" Weight 129.00 lb Heart Rate 64 /min BP Systolic 126 mmHg BP Diastolic 78 mmHg Respiratory Rate 14 /min BMI (Body Mass Index) 22.1 kg/m2 12/08/2017 Height 64 inches 5'4" Weight 123.00 lb Heart Rate 68 /min BP Systolic 130 mmHg BP Diastolic 64 mmHg Respiratory Rate 14 /min Body Temperature 96.9 F Pain Level 4 BMI (Body Mass Index) 21.1 kg/m2 06/20/2017 Height 64 inches 5'4" Weight 123.00 lb BP Systolic 126 mmHg BP Diastolic 70 mmHg Respiratory Rate 18 /min Pain Level 0 BMI (Body Mass Index) 21.1 kg/m2 05/16/2017 Height 64 inches 5'4" Weight 123.00 lb Heart Rate 66 /min BP Systolic 135 mmHg BP Diastolic 64 mmHg BMI (Body Mass Index) 21.1 kg/m2 04/08/2016 Height 62 inches 5'2" Weight 128.00 lb Pain Level 0 BMI (Body Mass Index) 23.4 kg/m2 03/08/2016 Height 62 inches 5'2" Weight 128.00 lb Heart Rate 63 /min BP Systolic 130 mmHg BP Diastolic 71 mmHg BMI (Body Mass Index) 23.4 kg/m2 04/17/2015 Height 62 inches 5'2" Weight 120.00 lb Heart Rate 76 /min BP Systolic Sitting 120 mmHg BP Diastolic Sitting 78 mmHg BMI (Body Mass Index) 21.9 kg/m2 Results Test Date Test Result H/L Range Note Laboratory test finding 04/25/2018 Point of Care Glucose 99 mg/dL 70-100 1 1 Cosmetician: [id number] Procedures Date CPT Code Description Status 04/26/2018 59956 ECHO Transthorasic Realtime 2D W Doppler & Color Flow Completed Hosp 12/08/201740485 Inject/Drain Joint/Bursa Major W/O US Completed 05/16/2017 93014 Inject/Drain Joint/Bursa Major W/O US Completed 03/08/2016 34445 Inject/Drain Joint/Bursa Major W/O US Completed 04/17/2015 79616 Tympanometry Completed Encounters Type Date Location Provider CPT E/M Dx Office Visit 04/26/2018 [facility] Kavin Little 70076 G45.9 7:00a Norbert E78.5 Office Visit 04/26/2018 12:26p [facility],KWAME Salter 11777 G45.9 Hospitalists E78.5 Office Visit 04/25/2018 12:26p [facility],michelle Hanson N.[place] 47650 G45.9 Hospitalists I10 Office Visit 06/20/2017 2:15p [facility] Valentin M.D. 69721 M25.561 C.M.A. M25.461 M17.11 Office Visit 05/16/2017 1:15p [facility] M.D. 24985 M25.561 C.M.A. M25.461 M17.11 Office Visit 04/08/2016 2:15p [facility] M.D. 33723 M17.12 C.M.A. Office Visit 03/08/2016 2:00p [facility] M.D. 66580 M17.12 C.M.A. Office Visit 04/17/2015 2:15p [facility] [address] [facility] Plan of Care 06/19/2018 - Kavin Little M.D.G45.9 Transient cerebral ischemic attack, unspecifiedFollow up:Follow up as [id number] Hyperlipidemia, unspecified
[2018-07-16 08:04] LABS: ABS Basophils 0 10^3/ul (0-0.2); ABS Eosinophils 0.1 10^3/ul (0-0.6); ABS Lymphocytes 1.3 10^3/ul (1.0-4.8); ABS Monocytes 0.7 10^3/ul (0-0.8); ABS Neutrophils 5.1 10^3/ul (1.5-7.7); ABS Nucleated RBC 0 10^3/ul; Eosinophil % 1.6 % (0-6); Hematocrit 44 % (35-47); Hemoglobin 14.7 g/dl (12.0-16.0); Lymphocyte % 17.5 % (25-47); Mean Corpuscular HGB Conc 33 g/dl (31-36); Mean Corpuscular Hemoglobin 30 pg (27-31); Mean Corpuscular Volume 90 fL (80-97); Nucleated Red Blood Cells % 0.2; Platelet Count 242 10^3/ul (150-450); Red Cell Distribution Width 14 % (10.5-15); White Blood Count 7.2 10^3/ul (3.5-10.8)
--- NOTE | 2018-07-16 08:23 | RAD ---
HISTORY: Dizziness COMPARISONS: April 25, 2018 VIEWS: 2: Frontal and lateral views of the chest. FINDINGS: CARDIOMEDIASTINAL SILHOUETTE: The cardiomediastinal silhouette is normal. MARISOL: The marisol are normal. PLEURA: The costophrenic angles are sharp. No pleural abnormalities are noted. LUNG PARENCHYMA: There is hyperinflation with flattening of the diaphragm and expansion of the AP diameter of the chest. ABDOMEN: The upper abdomen is clear. There is no subphrenic gas. BONES AND SOFT TISSUES: Degenerative changes are noted along the spine. OTHER: None. IMPRESSION: HYPERINFLATION, CONSISTENT WITH COPD. NO ACTIVE CARDIOPULMONARY DISEASE.
--- NOTE | 2018-07-16 08:56 | RAD ---
HISTORY: Dizziness COMPARISONS: April 25, 2018 TECHNIQUE: Multiple contiguous axial CT scans were obtained of the head without intravenous contrast. FINDINGS: HEMORRHAGE/INFARCT: There is no hemorrhage or acute infarct. MASSES/SHIFT: There is no mass or shift. EXTRA-AXIAL SPACES: There are no extra-axial fluid collections. SULCI AND VENTRICLES: The sulci and ventricles are normal in size and position for the patient's stated age. CEREBRUM: There is mild hypoattenuation of the periventricular and subcortical white matter. BRAINSTEM: There are no focal parenchymal abnormalities. CEREBELLUM: There are no focal parenchymal abnormalities. VESSELS: The vessels are grossly normal. PARANASAL SINUSES: The paranasal sinuses are clear. ORBITS: The orbits are unremarkable. BONES AND SOFT TISSUE: No bone or soft tissue abnormalities are noted. OTHER: None IMPRESSION: NO ACUTE INTRACRANIAL PATHOLOGY.
[2018-07-16 09:48] LABS: Urine Appearance Clear; Urine Color Yellow
[2018-07-16 09:49] LABS: Urine Specific Gravity 1.004 (1.010-1.030)
[2018-07-16 09:50] LABS: Urine Blood 1+ (Negative); Urine Ketones Negative (Negative); Urine Protein Negative (Negative); Urine Urobilinogen Negative (Negative)
[2018-07-16 11:16] LABS: Urine Red Blood Cell Trace(0-2/hpf) (Absent); Urine White Blood Cell Trace(0-5/hpf) (Absent)
[2018-07-16] MEDS ORDERED: Magnesium Oxide TAB* 400 MG PO ONE (11:54)
[2018-07-16 12:03] VITALS: BP 118/68
== END 2018-07-16 12:09 | disposition home or self-care (01) ==
LOC: ED 07:30
DX: R42 Dizziness and giddiness (principal); R53.1 Weakness; H92.01 Otalgia, right ear; Z87.891 Personal history of nicotine dependence
CPT/HCPCS: 36415; 70450; 71046; 80053; 81003; 81015; 82550; 83605; 83735; 83880; 84443; 84484; 85025; 86140; 87086; 93005; 96360; 96361; 99284; A9270-GY

== ENCOUNTER 2022-09-10 10:15 | Inpatient (IN) ==
[~2022-09-10 10:15] MED LIST: Buffered Lidocaine 1% SYRIN 1 ml INTRADERM ONE; Lactated Ringers 1000 ml BAG 1,000 ML IV SCH
[2022-09-10] MEDS ORDERED: Midazolam 2 mg/2 ml VIAL 1 mg/ml 2 ml VIAL (2 mg) ONE (11:49)
[2022-09-10] MEDS ORDERED: Lidocaine 2% PF 5 ML VIAL ONE (11:49)
[2022-09-10] MEDS ORDERED: fentaNYL 100 mcg/2 ml 50 MCG/ML VIAL ONE ×2 (11:49→18:06)
[2022-09-10] MEDS ORDERED: Lidocaine 1% MPF 5 ML VIAL ONE (12:34)
[2022-09-10] MEDS ORDERED: Bupivacaine 0.25% w/EPI 10 ML SDV ONE (12:36)
[2022-09-10] MEDS ORDERED: Dexamethasone IV 4 MG/ML VIAL 1 ml VIAL ONE ×2 (13:00→13:30)
[2022-09-10] MEDS ORDERED: Ondansetron 4 mg VIAL 2 MG/ML 2 ml VIAL ONE (13:00)
[2022-09-10] MEDS ORDERED: Succinylcholine 200 mg VIAL 20 mg/ml 10 ml VIAL (200 mg) ONE (13:00)
[2022-09-10] MEDS ORDERED: Propofol 10 MG/ML 20 ML BTL ONE (13:00)
[2022-09-10] MEDS ORDERED: Acetaminophen IV 1 GM/100ML 1,000 MG/100 ML BAG IV ONE (15:02)
[2022-09-10] MEDS ORDERED: Naloxone 0.4 mg VIAL 0.4 mg/ml 1 ml VIAL IV PRN (15:28)
[2022-09-10] MEDS ORDERED: fentaNYL 100 mcg/2 ml 50 MCG/ML VIAL IV PRN (15:28)
[2022-09-10] MEDS ORDERED: Metoprolol Tartrate 5 mg VIAL 5 ml VIAL (1 mg/ml) ONE (18:19)
[2022-09-10] MEDS: Metoprolol Tartrate 5 mg VIAL 5 ml VIAL (1 mg/ml) IV PRN ×4 (18:20→18:51)
[2022-09-10 18:44] LABS: Magnesium 1.6 mg/dL (1.9-2.7)
[2022-09-10] MEDS: Dextran 70/Hypromellose Tears Eye Drops 15 ml BTL (for Artificials Tears) LEFT EYE PRN ×2 (18:47→22:59)
[2022-09-10] MEDS ORDERED: Magnesium Sulfate 2 gm BAG 2 GM/50 ML BAG IVPB ONE (18:54)
[2022-09-10 19:25] LABS: Potassium 3.8 mmol/L (3.5-5.0); eGFR CKD-EPI 91.5 (>60)
[2022-09-11] MEDS: Benzocaine/Menthol LOZ MT PRN ×2 (00:26→10:32)
[2022-09-11 02:15] LABS: Calcium 9.3 mg/dL (8.6-10.3); Potassium 3.8 mmol/L (3.5-5.0)
[2022-09-11 06:24] LABS: Hematocrit 43 % (35-47); Hemoglobin 14.4 g/dL (12.0-16.0); Mean Corpuscular HGB Conc 34 g/dL (31-36); Mean Corpuscular Hemoglobin 31 pg (27-31); Mean Corpuscular Volume 92 fL (80-97); Mean Platelet Volume 7.6 fL (7.4-10.4); Platelet Count 233 10^3/uL (150-450); Red Blood Count 4.65 10^6 /uL (3.70-4.87); Red Cell Distribution Width 14 % (10-15)
[2022-09-11 06:34] LABS: Calcium 9.4 mg/dL (8.6-10.3); Magnesium 2.2 mg/dL (1.9-2.7); Potassium 4.1 mmol/L (3.5-5.0); eGFR CKD-EPI 93.7 (>60)
[2022-09-11] MEDS ORDERED: oxyCODONE 5 mg/5 ml ORAL.SOLN UDC PO PRN ×2 (08:06→08:07)
[2022-09-11] MEDS ORDERED: FLUVASTATIN 20 MG PO SCH (09:00)
[2022-09-11] MEDS: Calcium Carb (TUMS) 500 mg CHEW TAB PO SCH ×4 (09:50→21:16)
[2022-09-11 14:02] LABS: Calcium 9.3 mg/dL (8.6-10.3)
[2022-09-11 17:57] LABS: Potassium 4.1 mmol/L (3.5-5.0); eGFR CKD-EPI 88.1 (>60)
[2022-09-12] MEDS: Calcium Carb (TUMS) 500 mg CHEW TAB PO SCH ×3 (05:47→13:27)
[2022-09-12 12:43] VITALS: BP 127/87
== END 2022-09-12 13:45 | disposition home or self-care (01) | DRG 829 ==
LOC: OR 10:15 → SUATTDRO 17:10 → MEDTELE 17:10
PROVIDERS: ADMIT Internal Medicine; ATTEND Internal Medicine